=== PATIENT | female | born 1990 | race Two or more races ===

== ENCOUNTER 2018-05-18 16:42 | Inpatient (IN) | payer BC, OTHER ==
[~2018-05-18] VITALS: Ht 160 cm; Wt 148.6 kg
[2018-05-18 18:34] LABS: Basophils # (auto) 0.1 uL; Basophils % (auto) 0.5 % (0.0-2.0); Mean Corpuscular Hemoglobin 26.1 pg (28.0-32.0)
[2018-05-18 18:40] LABS: Eosinophils # (auto) 0.6 uL; Eosinophils % (auto) 3.8 % (0.0-7.0); Hematocrit 35.4 % (36.0-46.0); Hemoglobin 11.5 g/dL (12.2-16.2); Lymphocytes # (auto) 3.4 uL; Lymphocytes % (auto) 22.6 % (10.0-50.0); Mean Corpuscular Hgb Conc. 32.6 g/dL (32.0-36.0); Monocytes # (auto) 0.7 uL; Monocytes % (auto) 4.9 % (0.0-12.0); Neutrophils # (auto) 10.1 uL; Neutrophils % (auto) 68.2 % (37.0-80.0); Platelet Count (auto) 472 10^3/uL (140-450); Red Blood Cells 4.42 10^6/uL (4.0-5.20); Red Cell Distribution Width 15.6 % (11.8-14.3); White Blood Cell 14.9 10^3/uL (4.4-10.8)
[2018-05-18 18:50] LABS: Albumin 3.3 g/dL (3.4-5.0); BUN/Creatinine Ratio 23.2; Calcium 8.2 mg/dL (8.5-10.1); Potassium 3.7 mmol/L (3.5-5.1)
[2018-05-18 18:51] LABS: Urine Bacteria FEW /hpf (None Seen); Urine Blood Negative /uL (Negative); Urine Mucus FEW (None Seen); Urine Specific Gravity 1.033 (1.001-1.035); Urine WBC 1 /hpf (0 - 5)
[2018-05-18 18:53] LABS: Bilirubin, Total 0.7 mg/dL (0.2-1.0)
[2018-05-18] MEDS ORDERED: PIPERACILLIN-TAZOB 3.375GM 100 ML IV ONE (20:30)
[2018-05-18] MEDS ORDERED: SODIUM CHLORIDE 0.9% 500 ML IVB ONE (20:34)
[2018-05-18] MEDS ORDERED: TEMAZEPAM 15 MG CAP PO PRN (20:45)
[2018-05-18] MEDS ORDERED: PANTOPRAZOLE 40 MG/10 ML VIAL IV ONE (20:45)
[2018-05-18] MEDS ORDERED: ONDANSETRON HCL 4 MG/2 ML VIAL IV PRN (20:45)
[2018-05-18 21:45] VITALS: BP 120/75
[2018-05-18 22:30] VITALS: BP 120/75
[2018-05-18] MEDS: HYDROcodone-ACET 5/325MG TAB PO PRN (23:54)
[2018-05-19] MEDS ORDERED: CITA-73 PO (02:43)
[2018-05-19] MEDS ORDERED: ALPR0.254 PO (02:43)
[2018-05-19 05:00] VITALS: BP 119/65
[2018-05-19 06:48] LABS: Basophils # (auto) 0.1 uL; Eosinophils # (auto) 0.6 uL; Hemoglobin 10.9 g/dL (12.2-16.2); Lymphocytes % (auto) 24.2 % (10.0-50.0)
[2018-05-19 06:49] LABS: Basophils % (auto) 0.5 % (0.0-2.0); Eosinophils % (auto) 4.6 % (0.0-7.0); Hematocrit 33.6 % (36.0-46.0); Lymphocytes # (auto) 2.9 uL; Mean Corpuscular Hgb Conc. 32.4 g/dL (32.0-36.0); Mean Corpuscular Volume 80.5 fL (80.0-100.0); Monocytes # (auto) 0.8 uL; Monocytes % (auto) 6.3 % (0.0-12.0); Neutrophils # (auto) 7.8 uL; Neutrophils % (auto) 64.4 % (37.0-80.0); Platelet Count (auto) 408 10^3/uL (140-450); Red Blood Cells 4.18 10^6/uL (4.0-5.20); Red Cell Distribution Width 15.6 % (11.8-14.3); White Blood Cell 12.1 10^3/uL (4.4-10.8)
[2018-05-19 07:10] LABS: Albumin 2.7 g/dL (3.4-5.0); BUN/Creatinine Ratio 20.3; Calcium 7.9 mg/dL (8.5-10.1)
[2018-05-19 07:13] LABS: Bilirubin, Total 0.7 mg/dL (0.2-1.0); Total Protein 6.8 g/dL (6.4-8.2)
[2018-05-19] MEDS ORDERED: INFLUENZA QUAD 2018-2019 0.5 ML SYRG IM ONE (07:15)
[2018-05-19 09:08] VITALS: BP 127/84
[2018-05-19] MEDS: cefTRIAXone 1GM/10ml IVPUSH 10 ML IV SCH (10:47)
[2018-05-19] MEDS: PANTOPRAZOLE 40 MG/10 ML VIAL IV SCH (10:47)
[2018-05-19] MEDS ORDERED: SODIUM CHLORIDE 0.9% 1,000 ML IV ONE (12:00)
[2018-05-19 12:43] LABS: Partial Thromboplastin Time 33.8 sec (23.78-33.04); Prothrombin Time 10.7 sec (9.27-12.13)
[2018-05-19] MEDS: metroNIDAZOLE 500MG/100ML 100 ML IV SCH ×2 (13:03→20:26)
[2018-05-19 13:22] VITALS: BP 123/71
[2018-05-19] MEDS: ACETAMINOPHEN 325 MG TAB PO PRN (15:20)
[2018-05-19 17:17] VITALS: BP 132/78
[2018-05-19 22:00] VITALS: BP 130/76
[2018-05-19] MEDS: HYDROcodone-ACET 5/325MG TAB PO PRN (23:05)
[2018-05-20] MEDS: ACETAMINOPHEN 325 MG TAB PO PRN (03:00)
[2018-05-20] MEDS: metroNIDAZOLE 500MG/100ML 100 ML IV SCH (04:01)
[2018-05-20 05:00] VITALS: BP 122/70
[2018-05-20] MEDS: HYDROcodone-ACET 5/325MG TAB PO PRN (06:59)
[2018-05-20 08:18] VITALS: BP 139/73
[2018-05-20] MEDS: cefTRIAXone 1GM/10ml IVPUSH 10 ML IV SCH (09:00)
[2018-05-20] MEDS: PANTOPRAZOLE 40 MG/10 ML VIAL IV SCH (10:00)
== END 2018-05-20 10:30 | disposition home or self-care (01) | DRG 445 ==
LOC: ER 16:42 → CENTRAL 16:43
PROVIDERS: ADMIT Nurse Practitioner; ATTEND Family Medicine
DX: K80.20 Calculus of gallbladder without cholecystitis without obstruction (principal); Z68.43 Body mass index [BMI] 50.0-59.9, adult; K76.0 Fatty (change of) liver, not elsewhere classified; E66.01 Morbid (severe) obesity due to excess calories; D72.829 Elevated white blood cell count, unspecified; R16.0 Hepatomegaly, not elsewhere classified; Z90.89 Acquired absence of other organs
CPT/HCPCS: 36415; 74176; 76705; 76830; 76856; 78226; 80053; 81001; 83690; 84702; 85025; 85610; 85730; 90674; 96361; 96365; 96375; C9113; J0696; J2543; J3490

== ENCOUNTER 2019-11-30 02:09 | Inpatient (IN) | payer BC ==
[~2019-11-30] VITALS: Ht 160 cm; Wt 147.6 kg
[~2019-11-30 02:09] MED LIST: ALPR0.254 PO; CITA-73 PO
[2019-11-30 03:06] LABS: Basophils # (auto) 0.1 10 ^3/uL (0-0.2); Basophils % (auto) 0.6 % (0.0-2.0); Eosinophils # (auto) 0.7 10 ^3/uL (0-0.8); Hemoglobin 11.6 g/dL (12.2-16.2); Monocytes # (auto) 1.2 10 ^3/uL (0-1.3); Nucleated Red Blood Cells % 0.1 %
[2019-11-30 03:08] LABS: Eosinophils % (auto) 3.8 % (0.0-7.0); Hematocrit 35.4 % (36.0-46.0); Lymphocytes # (auto) 3.1 10 ^3/uL (0.4-5.4); Lymphocytes % (auto) 18.1 % (10.0-50.0); Mean Corpuscular Hgb Conc. 32.8 g/dL (32.0-36.0); Mean Corpuscular Volume 76.3 fL (80.0-100.0); Monocytes % (auto) 6.7 % (0.0-12.0); Neutrophils # (auto) 12.1 10 ^3/uL (1.6-8.6); Neutrophils % (auto) 70.8 % (37.0-80.0); Platelet Count (auto) 554 10^3/uL (140-450); Red Blood Cells 4.64 10^6/uL (4.0-5.20); Red Cell Distribution Width 15.6 % (11.8-14.3); White Blood Cell 17.1 10^3/uL (4.4-10.8)
[2019-11-30 03:20] LABS: Urine Bacteria NONE SEEN /hpf (None Seen); Urine Blood 1+ /uL (Negative); Urine Specific Gravity 1.018 (1.001-1.035); Urine WBC <1 /hpf (0 - 5)
[2019-11-30 03:24] LABS: Calcium 8.9 mg/dL (8.5-10.1); Potassium 3.9 mmol/L (3.5-5.1)
[2019-11-30 03:28] LABS: Albumin 3.1 g/dL (3.4-5.0); BUN/Creatinine Ratio 24.2
[2019-11-30 03:30] LABS: Bilirubin, Total 0.5 mg/dL (0.2-1.0)
[2019-11-30] MEDS ORDERED: ONDANSETRON HCL 4 MG/2 ML VIAL IV ONE (05:45)
[2019-11-30] MEDS ORDERED: HYDROmorphone HCL 2 MG/ML VL IV ONE (05:45)
[2019-11-30] MEDS ORDERED: PROMETHAZINE HCL 25 MG/ML 1ML IV ONE (08:00)
[2019-11-30] MEDS ORDERED: METOCLOPRAMIDE HCL 5MG/ml INJ 2ml VIAL IV ONE (08:15)
[2019-11-30] MEDS ORDERED: cefTRIAXone 1GM/50ML D5W 50 ML IV ONE (08:15)
[2019-11-30] MEDS ORDERED: PROMETHAZINE HCL 25 MG/ML 1ML IV PRN (08:45)
[2019-11-30] MEDS ORDERED: MORPHINE SULF INJ 2 MG/ML SYRINGE 1ML IV PRN (08:45)
[2019-11-30] MEDS: cefTRIAXone 1GM/50ML D5W 50 ML IV SCH (09:00)
[2019-11-30] MEDS: FAMOTIDINE (10MG/ML) 2ML VL IV SCH ×2 (09:16→21:28)
[2019-11-30] MEDS: SODIUM CHLORIDE 0.9% 1,000 ML IV SCH ×2 (09:16→18:08)
[2019-11-30] MEDS: ENOXAPARIN SOD 40 MG/0.4 ML SYRINGE SC SCH (10:00)
[2019-11-30 11:17] LABS: INR 1.13 (0.9-1.15); Partial Thromboplastin Time 30.4 sec (23.64-32.05)
[2019-11-30] MEDS ORDERED: ceFAZolin 1GM/50ML 50 ML IV ONE (11:17)
[2019-11-30] MEDS ORDERED: POVIDONE IODINE 10 % TOPICAL OINT 30GM TOP ONE (12:34)
[2019-11-30] MEDS ORDERED: fentaNYL CITRATE 100 MCG/2 ML VL ONE (12:35)
[2019-11-30] MEDS ORDERED: GLYCOPYRROLATE 0.2 MG/ML 1ML VIAL IV ONE (12:35)
[2019-11-30] MEDS ORDERED: NEOSTIGMINE 1 MG/ML INJ (10mg/10ML VIAL) IV ONE (12:35)
[2019-11-30] MEDS ORDERED: SUCCINYLCHOLINE CHLORIDE 20 MG/ML 10ML VIAL IV ONE (12:35)
[2019-11-30] MEDS ORDERED: MEPERIDINE HCL (50 MG/ML) 1 ML VIAL ONE (12:36)
[2019-11-30] MEDS ORDERED: MIDAZOLAM HCL 1MG/1ML-2 ML VIAL ONE (12:36)
[2019-11-30] MEDS ORDERED: DexAMETHasone SOD PHOS 10MG/1ML VIAL INJ ONE (13:05)
[2019-11-30] MEDS ORDERED: PROPOFOL 10 MG/ML 20 ML IV ONE (13:05)
[2019-11-30] MEDS ORDERED: MORPHINE SULF INJ 2 MG/ML SYRINGE 1ML IV ONE (14:45)
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
[2019-11-30] MEDS: metroNIDAZOLE 500MG/100ML 100 ML IV SCH ×2 (15:27→21:28)
[2019-11-30 17:24] VITALS: BP 130/83
--- NOTE | 2019-11-30 20:00 | NUR ---
RECEIVED PATIENT FROM DAY SHIFT RN. PATIENT RESTING IN BED WITH EYES CLOSED. NO S/S OF DISTRESS NOTED. C/O PAIN @ 8/10, WILL COME BACK FOR PAIN MEDICATION LATER. DRESSING ON ABD D/I, NO S/S OF BLEED AND INFECTION NOTED. ABD BINDER IN PLACE. IS AT BEDSIDE, REINFORCED PATIENT ON USING OF IS. PATIENT VERBALIZED UNDERSTANDING. BED IN LOWEST POSITION WITH SIDE RAILS UP X 2. CALL BLAKE WITHIN REACH. CONTINUE TO MONITOR FOR CHANGES Q1H AND PRN.
[2019-11-30] MEDS: MORPHINE SULF INJ 2 MG/ML SYRINGE 1ML IV PRN (20:43)
--- NOTE | 2019-11-30 20:43 | NUR ---
MEDICATED PATIENT FOR PAIN @ 03/17 ORDERED. CONTINUE TO MONITOR.
--- NOTE | 2019-11-30 21:10 | NUR ---
REASSESSED PAIN 11/15. PATIENT MORE COMFORTABLE AND SITTING AT THE SIDE OF BED AND TALKING ON THE PHONE. CONTINUE TO MONITOR.
[2019-11-30 21:43] VITALS: BP 159/86
[2019-12-01] MEDS: SODIUM CHLORIDE 0.9% 1,000 ML IV SCH ×2 (02:32→14:45)
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
[2019-12-01] MEDS: MORPHINE SULF INJ 2 MG/ML SYRINGE 1ML IV PRN ×3 (03:08→20:21)
--- NOTE | 2019-12-01 03:08 | NUR ---
MEDICATED PATIENT FOR PAIN @ 03/17 ORDERED. CONTINUE TO MONITOR.
--- NOTE | 2019-12-01 03:35 | NUR ---
REASSESSED PAIN 10/15. CONTINUE TO MONITOR.
[2019-12-01 05:00] VITALS: BP 140/75
[2019-12-01] MEDS: metroNIDAZOLE 500MG/100ML 100 ML IV SCH ×3 (05:48→21:47)
--- NOTE | 2019-12-01 05:58 | NUR ---
PATIENT BACK FROM BATHROOM WITH STEADY GAIT, AND STATED THAT SHE SEEMED LIKE SHE STARTED HER PERIOD AT THIS TIME, THE LAST PERIOD PATIENT HAD WAS 2 MONTHS AGO PER PATIENT. INSTRUCTED PATIENT TO MONITOR FOR THE PERIOD AND S/S OF ANEMIA SINCE PATIENT JUST HAD OPERATION. PATIENT VERBALIZED UNDERSTANDING. CONTINUE TO MONITOR.
[2019-12-01 06:43] LABS: Basophils # (auto) 0 10 ^3/uL (0-0.2); Basophils % (auto) 0.2 % (0.0-2.0); Eosinophils # (auto) 0 10 ^3/uL (0-0.8); Neutrophils # (auto) 13.2 10 ^3/uL (1.6-8.6); Neutrophils % (auto) 83.1 % (37.0-80.0); White Blood Cell 15.9 10^3/uL (4.4-10.8)
[2019-12-01 06:46] LABS: Hematocrit 34.8 % (36.0-46.0); Hemoglobin 11.2 g/dL (12.2-16.2); Lymphocytes # (auto) 1.6 10 ^3/uL (0.4-5.4); Mean Corpuscular Hemoglobin 24.8 pg (28.0-32.0); Mean Corpuscular Hgb Conc. 32.2 g/dL (32.0-36.0); Mean Corpuscular Volume 76.9 fL (80.0-100.0); Monocytes # (auto) 1.1 10 ^3/uL (0-1.3); Monocytes % (auto) 6.7 % (0.0-12.0); Platelet Count (auto) 529 10^3/uL (140-450); Red Blood Cells 4.53 10^6/uL (4.0-5.20); Red Cell Distribution Width 15.9 % (11.8-14.3)
[2019-12-01 07:10] LABS: Potassium 3.5 mmol/L (3.5-5.1)
[2019-12-01 07:21] LABS: Albumin 3.2 g/dL (3.4-5.0); Bilirubin, Total 0.6 mg/dL (0.2-1.0); Calcium 8.7 mg/dL (8.5-10.1); Total Protein 7.9 g/dL (6.4-8.2)
[2019-12-01 09:00] VITALS: BP 140/80
[2019-12-01] MEDS: ENOXAPARIN SOD 40 MG/0.4 ML SYRINGE SC SCH (10:33)
[2019-12-01] MEDS: cefTRIAXone 1GM/50ML D5W 50 ML IV SCH (10:35)
[2019-12-01] MEDS: FAMOTIDINE (10MG/ML) 2ML VL IV SCH ×2 (10:47→21:46)
[2019-12-01 13:00] VITALS: BP 149/89
[2019-12-01 17:00] VITALS: BP 148/85
--- NOTE | 2019-12-01 20:00 | NUR ---
RECEIVED PATIENT FROM DAY SHIFT RN. PATIENT RESTING IN BED. NO S/S OF DISTRESS NOTED. C/O PAIN @ 8/10, WILL COME BACK FOR PAIN MEDICATION LATER. DRESSING ON ABD D/I, NO S/S OF BLEED AND INFECTION NOTED. ABD BINDER IN PLACE. IS AT BEDSIDE, BED IN LOWEST POSITION WITH SIDE RAILS UP X 2. CALL BLAKE WITHIN REACH. CONTINUE TO MONITOR FOR CHANGES Q1H AND PRN.
--- NOTE | 2019-12-01 20:25 | NUR ---
MEDICATED PATIENT FOR PAIN @ 03/17 ORDERED. CONTINUE TO MONITOR.
--- NOTE | 2019-12-01 20:49 | NUR ---
REASSESSED PAIN 11/15. CONTINUE TO MONITOR.
[2019-12-01 22:00] VITALS: BP 148/75
--- NOTE | 2019-12-02 01:39 | NUR ---
PATIENT SLEEPING. NO S/S OF DISTRESS NOTED. CONTINUE CARE.
[2019-12-02 05:00] VITALS: BP 149/88
[2019-12-02] MEDS: SODIUM CHLORIDE 0.9% 1,000 ML IV SCH (05:21)
[2019-12-02] MEDS: MORPHINE SULF INJ 2 MG/ML SYRINGE 1ML IV PRN (05:21)
--- NOTE | 2019-12-02 05:22 | NUR ---
MEDICATED PATIENT FOR PAIN @ 03/17 ORDERED. CONTINUE TO MONITOR.
[2019-12-02] MEDS: metroNIDAZOLE 500MG/100ML 100 ML IV SCH (05:48)
--- NOTE | 2019-12-02 05:49 | NUR ---
REASSESSED PAIN 12/15. CONTINUE TO MONITOR.
[2019-12-02 09:00] VITALS: BP 137/98
[2019-12-02] MEDS: FAMOTIDINE (10MG/ML) 2ML VL IV SCH (09:41)
[2019-12-02] MEDS: cefTRIAXone 1GM/50ML D5W 50 ML IV SCH (09:41)
[2019-12-02] MEDS: ENOXAPARIN SOD 40 MG/0.4 ML SYRINGE SC SCH (10:00)
--- NOTE | 2019-12-02 13:05 | NUR ---
DISCHARGE INSTRUCTIONS, PRESCRIPTIONS AND FOLLOW UP APPOINTMENTS GIVEN TO PATIENT. PATIENT WAS EDUCATED ON ACTIVITY, MEDICATIONS, AND DIET AND VERBALIZED UNDERSTANDING. PATIENT ALSO EDUCATED TO RETURN TO ED IF EXPERIENCING ANY CP OR SOB THAT DOESN'T RESOLVE W/ REST. PATIENT VERBALIZED UNDERSTANDING. IV REMOVED BY VIOLETTA CLEMENTS. VS 98.2,90HR,18RR,137/98,97%.
== END 2019-12-02 13:05 | disposition home or self-care (01) | DRG 854 ==
LOC: ER 02:11 → OVERFLOW 02:12 → CENTRAL 15:12
PROVIDERS: ADMIT Internal Medicine; ATTEND Internal Medicine
PROC: 3E013GC Introduction of Other Therapeutic Substance into Subcutaneous Tissue, Percutaneous Approach (ICD-10-PCS; 2019-11-30)
PROC: 0FT44ZZ Resection of Gallbladder, Percutaneous Endoscopic Approach (ICD-10-PCS; principal; 2019-11-30 12:51)
DX: A41.9 Sepsis, unspecified organism (principal); Z68.43 Body mass index [BMI] 50.0-59.9, adult; K80.00 Calculus of gallbladder with acute cholecystitis without obstruction; E66.01 Morbid (severe) obesity due to excess calories; F12.90 Cannabis use, unspecified, uncomplicated; F41.9 Anxiety disorder, unspecified; F32.9 Major depressive disorder, single episode, unspecified; Z82.49 Family history of ischemic heart disease and other diseases of the circulatory system; Z83.3 Family history of diabetes mellitus
CPT/HCPCS: 36415; 71045; 74176; 76705; 78226; 80053; 81001; 81025; 82150; 82728; 83690; 85025; 85610; 85730; 86850; 86900; 86901; 87070; 87804; 87880; 96365; 96366; 96375; G0378; J0330; J0690; J0696; J1100; J2250; J2405; J2704; J3490

== ENCOUNTER → 2019-12-30 | Emergency (ER) | payer BC ==
[~2019-12-30] VITALS: Ht 160 cm; Wt 142.0 kg
[~2019-12-30] MED LIST changes: +ONDANSETRON HCL 4 MG/2 ML VIAL IV ONE; +PANTOPRAZOLE 40 MG/10 ML VIAL INJ IV ONE; +cefTRIAXone 1GM/50ML D5W 50 ML IV ONE
[2019-12-30 01:43] LABS: Basophils # (auto) 0.1 10 ^3/uL (0-0.2); Eosinophils # (auto) 0.5 10 ^3/uL (0-0.8); Hemoglobin 12.3 g/dL (12.2-16.2); Neutrophils # (auto) 10.6 10 ^3/uL (1.6-8.6)
[2019-12-30 01:44] LABS: Basophils % (auto) 0.8 % (0.0-2.0); Eosinophils % (auto) 3.1 % (0.0-7.0); Lymphocytes # (auto) 3.1 10 ^3/uL (0.4-5.4); Lymphocytes % (auto) 20.3 % (10.0-50.0); Mean Corpuscular Hemoglobin 24.3 pg (28.0-32.0); Mean Corpuscular Hgb Conc. 31.7 g/dL (32.0-36.0); Mean Corpuscular Volume 76.8 fL (80.0-100.0); Monocytes % (auto) 6.6 % (0.0-12.0); Neutrophils % (auto) 69.2 % (37.0-80.0); Nucleated Red Blood Cells % 0.1 %; Platelet Count (auto) 517 10^3/uL (140-450); Red Blood Cells 5.07 10^6/uL (4.0-5.20); Red Cell Distribution Width 16.2 % (11.8-14.3); White Blood Cell 15.3 10^3/uL (4.4-10.8)
[2019-12-30 01:55] LABS: Albumin 3.4 g/dL (3.4-5.0); BUN/Creatinine Ratio 17.6; Calcium 8.8 mg/dL (8.5-10.1)
[2019-12-30 01:58] LABS: Bilirubin, Total 0.5 mg/dL (0.2-1.0); Total Protein 8.2 g/dL (6.4-8.2)
[2019-12-30 02:12] LABS: Urine Bacteria NONE SEEN /hpf (None Seen); Urine Blood 2+ /uL (Negative); Urine Mucus FEW (None Seen); Urine Specific Gravity 1.031 (1.001-1.035); Urine WBC 2 /hpf (0 - 5)
[2019-12-30 09:15] VITALS: BP 125/63
== END | disposition home or self-care (01) ==
LOC: ER 00:09
DX: N39.0 Urinary tract infection, site not specified (principal); K52.9 Noninfective gastroenteritis and colitis, unspecified; Z79.899 Other long term (current) drug therapy
CPT/HCPCS: 36415; 80053; 81001; 81025; 83690; 85025; 96365; 96375; 99284; C9113; J0696; J2405; 96361; 96374

== ENCOUNTER 2020-01-02 19:40 | Emergency (ER) | payer BC ==
[~2020-01-02] VITALS: Ht 160 cm; Wt 137.4 kg
[~2020-01-02 19:40] MED LIST changes: -ONDANSETRON HCL 4 MG/2 ML VIAL IV ONE; -PANTOPRAZOLE 40 MG/10 ML VIAL INJ IV ONE; -cefTRIAXone 1GM/50ML D5W 50 ML IV ONE
[2020-01-02 21:12] LABS: Basophils # (auto) 0.1 10 ^3/uL (0-0.2); Eosinophils # (auto) 0.3 10 ^3/uL (0-0.8); Lymphocytes # (auto) 3.5 10 ^3/uL (0.4-5.4); Monocytes # (auto) 1.1 10 ^3/uL (0-1.3)
[2020-01-02 21:14] LABS: Basophils % (auto) 0.7 % (0.0-2.0); Eosinophils % (auto) 1.7 % (0.0-7.0); Lymphocytes % (auto) 19.2 % (10.0-50.0); Mean Corpuscular Hemoglobin 24.6 pg (28.0-32.0); Mean Corpuscular Hgb Conc. 31.7 g/dL (32.0-36.0); Mean Corpuscular Volume 77.5 fL (80.0-100.0); Monocytes % (auto) 5.8 % (0.0-12.0); Neutrophils # (auto) 13.2 10 ^3/uL (1.6-8.6); Neutrophils % (auto) 72.6 % (37.0-80.0); Platelet Count (auto) 509 10^3/uL (140-450); Red Blood Cells 5.29 10^6/uL (4.0-5.20); Red Cell Distribution Width 16.1 % (11.8-14.3); White Blood Cell 18.2 10^3/uL (4.4-10.8)
[2020-01-02 21:17] LABS: Urine Bacteria NONE SEEN /hpf (None Seen); Urine Blood TRACE /uL (Negative); Urine Mucus FEW (None Seen); Urine Specific Gravity 1.021 (1.001-1.035); Urine WBC 3 /hpf (0 - 5)
[2020-01-02 21:25] LABS: INR 1.17 (0.9-1.15)
[2020-01-02 21:29] LABS: Albumin 3.8 g/dL (3.4-5.0); Anion Gap 9 (5-15); Blood Urea Nitrogen 10 mg/dL (7-18); Calcium 9.1 mg/dL (8.5-10.1); Carbon Dioxide 25 mmol/L (21-32); Chloride 102 mmol/L (98-107); Glucose 97 mg/dL (74-106); Potassium 3.3 mmol/L (3.5-5.1); Sodium 136 mmol/L (136-145)
[2020-01-02 21:30] LABS: Alcohol, Urine < 3.0 mg/dL (0-10); Amphetamine Screen, Urine NEGATIVE (NEGATIVE); Barbiturate Scree,Urine NEGATIVE (NEGATIVE); Benzodiazephine Screen, Urine POSITIVE (NEGATIVE); Cannabinoid Screen, Urine NEGATIVE (NEGATIVE); Cocaine Screen, Urine NEGATIVE (NEGATIVE); Opiate Scree,Urine NEGATIVE (NEGATIVE); Phencyclidine Screen, Urine NEGATIVE (NEGATIVE)
[2020-01-02 21:35] LABS: Alanine Aminotransferase 78 U/L (13-56); Alkaline Phosphatase 113 U/L (45-117); Aspartate Aminotransferase 36 U/L (15-37); BUN/Creatinine Ratio 12.3; Bilirubin, Total 0.8 mg/dL (0.2-1.0); GFR African American 108 mL/min; GFR Non-African American 89 mL/min; Total Protein 8.5 g/dL (6.4-8.2)
[2020-01-02] MEDS ORDERED: ACETAMINOPHEN 325 MG TAB PO ONE ×2 (23:15)
[2020-01-02] MEDS ORDERED: cefTRIAXone SOD 1,000 MG VL IM ONE (23:45)
[2020-01-02] MEDS ORDERED: POTASSIUM CHL 20 Meq TABLET PO ONE (23:45)
[2020-01-03 00:40] VITALS: BP 144/90
== END 2020-01-03 00:50 | disposition home or self-care (01) ==
LOC: ER 19:41
DX: N39.0 Urinary tract infection, site not specified (principal); K29.70 Gastritis, unspecified, without bleeding; K42.9 Umbilical hernia without obstruction or gangrene; E87.6 Hypokalemia; Z90.49 Acquired absence of other specified parts of digestive tract
CPT/HCPCS: 36415; 74176; 80053; 80307; 81001; 83605; 83880; 84484; 85025; 85610; 85730; 96372; 99284; J0696

== ENCOUNTER 2020-01-05 23:21 | Emergency (ER) | payer BC ==
[~2020-01-05] VITALS: Ht 160 cm; Wt 137.4 kg
[2020-01-05 23:37] VITALS: BP 162/87
== END 2020-01-05 23:51 | disposition left against medical advice (07) ==
LOC: ER 23:21
DX: K92.1 Melena (principal); Z53.21 Procedure and treatment not carried out due to patient leaving prior to being seen by health care provider

== ENCOUNTER 2020-01-06 20:25 | Emergency (ER) | payer BC ==
[~2020-01-06] VITALS: Ht 160 cm; Wt 137.4 kg
[2020-01-06 21:27] LABS: Eosinophils # (auto) 0.3 10 ^3/uL (0-0.8); Hematocrit 37.6 % (36.0-46.0); Mean Corpuscular Volume 76.3 fL (80.0-100.0); Neutrophils # (auto) 10.6 10 ^3/uL (1.6-8.6); Neutrophils % (auto) 67.4 % (37.0-80.0); Red Blood Cells 4.93 10^6/uL (4.0-5.20); White Blood Cell 15.8 10^3/uL (4.4-10.8)
[2020-01-06 21:28] LABS: Basophils # (auto) 0.2 10 ^3/uL (0-0.2); Eosinophils % (auto) 1.8 % (0.0-7.0); Hemoglobin 12.6 g/dL (12.2-16.2); Lymphocytes # (auto) 3.6 10 ^3/uL (0.4-5.4); Lymphocytes % (auto) 22.5 % (10.0-50.0); Mean Corpuscular Hemoglobin 25.5 pg (28.0-32.0); Mean Corpuscular Hgb Conc. 33.4 g/dL (32.0-36.0); Monocytes # (auto) 1.2 10 ^3/uL (0-1.3); Monocytes % (auto) 7.3 % (0.0-12.0); Platelet Count (auto) 452 10^3/uL (140-450); Red Cell Distribution Width 16.5 % (11.8-14.3)
[2020-01-06 21:43] LABS: INR 1.17 (0.9-1.15); Partial Thromboplastin Time 32.8 sec (23.64-32.05)
[2020-01-06 21:51] LABS: Alanine Aminotransferase 66 U/L (13-56); Albumin 3.6 g/dL (3.4-5.0); Anion Gap 7 (5-15); Aspartate Aminotransferase 34 U/L (15-37); BUN/Creatinine Ratio 6.8; Blood Urea Nitrogen 5 mg/dL (7-18); Calcium 8.7 mg/dL (8.5-10.1); Carbon Dioxide 24 mmol/L (21-32); Chloride 105 mmol/L (98-107); GFR African American 121 mL/min; GFR Non-African American 100 mL/min; Glucose 99 mg/dL (74-106); Potassium 3.5 mmol/L (3.5-5.1); Sodium 136 mmol/L (136-145)
[2020-01-06 21:56] LABS: Alkaline Phosphatase 97 U/L (45-117); Bilirubin, Total 0.7 mg/dL (0.2-1.0)
[2020-01-06 22:20] LABS: Urine Bacteria FEW /hpf (None Seen); Urine Blood 2+ /uL (Negative); Urine Specific Gravity 1.003 (1.001-1.035); Urine WBC 1 /hpf (0 - 5)
[2020-01-06 22:33] LABS: Alcohol, Urine < 3.0 mg/dL (0-10); Amphetamine Screen, Urine NEGATIVE (NEGATIVE); Barbiturate Scree,Urine NEGATIVE (NEGATIVE); Benzodiazephine Screen, Urine NEGATIVE (NEGATIVE); Cannabinoid Screen, Urine NEGATIVE (NEGATIVE); Cocaine Screen, Urine NEGATIVE (NEGATIVE); Opiate Scree,Urine NEGATIVE (NEGATIVE); Phencyclidine Screen, Urine NEGATIVE (NEGATIVE)
[2020-01-07 00:05] VITALS: BP 140/82
== END 2020-01-06 23:39 | disposition home or self-care (01) ==
LOC: ER 20:26
DX: J01.90 Acute sinusitis, unspecified (principal); I10 Essential (primary) hypertension; K21.9 Gastro-esophageal reflux disease without esophagitis; Z90.49 Acquired absence of other specified parts of digestive tract
CPT/HCPCS: 36415; 71045; 80053; 80307; 81001; 81025; 83880; 84484; 85025; 85610; 85730; 93005

== ENCOUNTER 2020-01-07 05:41 | Emergency (ER) | payer BC ==
[~2020-01-07] VITALS: Ht 160 cm; Wt 137.4 kg
[2020-01-07] MEDS ORDERED: SODIUM CHLORIDE 0.9% 1,000 ML IV ONE ×2 (06:23)
[2020-01-07 07:07] LABS: Basophils # (auto) 0.1 10 ^3/uL (0-0.2); Monocytes # (auto) 0.9 10 ^3/uL (0-1.3); Monocytes % (auto) 7.5 % (0.0-12.0); Red Blood Cells 4.98 10^6/uL (4.0-5.20)
[2020-01-07 07:09] LABS: Basophils % (auto) 0.8 % (0.0-2.0); Eosinophils # (auto) 0.3 10 ^3/uL (0-0.8); Eosinophils % (auto) 2.4 % (0.0-7.0); Hematocrit 38.3 % (36.0-46.0); Hemoglobin 12.1 g/dL (12.2-16.2); Lymphocytes # (auto) 2.5 10 ^3/uL (0.4-5.4); Lymphocytes % (auto) 20.9 % (10.0-50.0); Mean Corpuscular Hemoglobin 24.2 pg (28.0-32.0); Mean Corpuscular Hgb Conc. 31.5 g/dL (32.0-36.0); Mean Corpuscular Volume 76.9 fL (80.0-100.0); Neutrophils # (auto) 8.2 10 ^3/uL (1.6-8.6); Neutrophils % (auto) 68.4 % (37.0-80.0); Nucleated Red Blood Cells % 0.1 %; Platelet Count (auto) 415 10^3/uL (140-450); Red Cell Distribution Width 16.3 % (11.8-14.3); White Blood Cell 11.9 10^3/uL (4.4-10.8)
[2020-01-07 07:24] LABS: INR 1.15 (0.9-1.15); Partial Thromboplastin Time 33.3 sec (23.64-32.05)
[2020-01-07 07:25] LABS: Albumin 3.5 g/dL (3.4-5.0); Potassium 3.7 mmol/L (3.5-5.1)
[2020-01-07 07:29] LABS: BUN/Creatinine Ratio 7.6; Bilirubin, Total 0.8 mg/dL (0.2-1.0); Total Protein 7.7 g/dL (6.4-8.2)
[2020-01-07] MEDS ORDERED: cefTRIAXone 1GM/50ML D5W 50 ML IV ONE (08:45)
[2020-01-07 08:56] VITALS: BP 138/75
== END 2020-01-07 09:49 | disposition home or self-care (01) ==
LOC: EDBD 05:41 → ER 05:41
DX: R10.9 Unspecified abdominal pain (principal); E86.0 Dehydration; D72.828 Other elevated white blood cell count; R94.5 Abnormal results of liver function studies; F12.10 Cannabis abuse, uncomplicated; F41.9 Anxiety disorder, unspecified; F32.9 Major depressive disorder, single episode, unspecified; Z79.899 Other long term (current) drug therapy; Z90.49 Acquired absence of other specified parts of digestive tract
CPT/HCPCS: 36415; 71045; 74176; 80053; 83690; 85025; 85610; 85730; 96365; 99285; J0696; J7030

== ENCOUNTER → 2020-01-21 | Outpatient (CLI) | payer BC ==
[~2020-01-21] MED LIST changes: +CLON0.1T PO; +FAM20T PO; +FLUO-125 PO; +LISI-275 PO; +SUCR1TAB38 PO
[2020-01-21 10:08] LABS: Basophils # (auto) 0.1 10 ^3/uL (0-0.2); Basophils % (auto) 1.1 % (0.0-2.0); Lymphocytes # (auto) 2.2 10 ^3/uL (0.4-5.4)
[2020-01-21 10:10] LABS: Eosinophils # (auto) 0.4 10 ^3/uL (0-0.8); Eosinophils % (auto) 4.9 % (0.0-7.0); Hematocrit 38.1 % (36.0-46.0); Hemoglobin 12.3 g/dL (12.2-16.2); Lymphocytes % (auto) 27.6 % (10.0-50.0); Mean Corpuscular Hgb Conc. 32.2 g/dL (32.0-36.0); Mean Corpuscular Volume 77.7 fL (80.0-100.0); Monocytes # (auto) 0.6 10 ^3/uL (0-1.3); Monocytes % (auto) 7.8 % (0.0-12.0); Neutrophils # (auto) 4.8 10 ^3/uL (1.6-8.6); Neutrophils % (auto) 58.6 % (37.0-80.0); Platelet Count (auto) 359 10^3/uL (140-450); White Blood Cell 8.2 10^3/uL (4.4-10.8)
[2020-01-21 10:13] LABS: Urine Bacteria FEW /hpf (None Seen); Urine Blood Negative /uL (Negative); Urine Mucus FEW (None Seen); Urine Specific Gravity 1.026 (1.001-1.035); Urine WBC 17 /hpf (0 - 5)
[2020-01-21 10:52] LABS: Potassium 4.1 mmol/L (3.5-5.1)
[2020-01-21 10:58] LABS: Free T4 (Free Thyroxine) 0.95 ng/dL (0.89-1.76)
[2020-01-21 11:08] LABS: Albumin 3.4 g/dL (3.4-5.0); Bilirubin, Total 0.7 mg/dL (0.2-1.0); Calcium 8.7 mg/dL (8.5-10.1); Total Protein 7.6 g/dL (6.4-8.2)
[2020-01-21 12:00] LABS: Hepatitis B Surface Antigen Negative (Negative)
[2020-01-21 12:04] LABS: Hepatitis C Antibody Reactive (Negative)
== END | disposition home or self-care (01) ==
LOC: LAB 09:41
PROVIDERS: ATTEND Internal Medicine
DX: I10 Essential (primary) hypertension (principal); R10.13 Epigastric pain; R11.2 Nausea with vomiting, unspecified
CPT/HCPCS: 36415; 80053; 80061; 81001; 82043; 82306; 82607; 83036; 83690; 84439; 84443; 85025; 85652; 86038; 86677; 86803; 87086; 87340

== ENCOUNTER → 2020-02-01 | Day surgery (SDC) | payer BC ==
[2020-01-30 12:26] LABS: Basophils # (auto) 0.1 10 ^3/uL (0-0.2); Eosinophils # (auto) 0.5 10 ^3/uL (0-0.8); Hemoglobin 12.4 g/dL (12.2-16.2); Lymphocytes # (auto) 2.7 10 ^3/uL (0.4-5.4); Monocytes # (auto) 1.1 10 ^3/uL (0-1.3); Neutrophils # (auto) 6.7 10 ^3/uL (1.6-8.6)
[2020-01-30 12:29] LABS: Basophils % (auto) 0.9 % (0.0-2.0); Eosinophils % (auto) 4.8 % (0.0-7.0); Hematocrit 38.7 % (36.0-46.0); Lymphocytes % (auto) 24.4 % (10.0-50.0); Mean Corpuscular Hemoglobin 24.9 pg (28.0-32.0); Mean Corpuscular Hgb Conc. 32.1 g/dL (32.0-36.0); Mean Corpuscular Volume 77.4 fL (80.0-100.0); Monocytes % (auto) 9.6 % (0.0-12.0); Neutrophils % (auto) 60.3 % (37.0-80.0); Platelet Count (auto) 375 10^3/uL (140-450); Red Blood Cells 5.01 10^6/uL (4.0-5.20); Red Cell Distribution Width 16.7 % (11.8-14.3)
[2020-01-30 12:44] LABS: INR 1.12 (0.9-1.15); Partial Thromboplastin Time 32.4 sec (23.64-32.05)
[~2020-02-01] VITALS: Ht 160 cm; Wt 132.9 kg
[~2020-02-01] MED LIST changes: +LIDOCAINE VISCOUS 2% 15ML UD ONE; +SODIUM CHLORIDE LOCK 10 ML ONE; +diphenhdrAMINE HCL 50 MG/1 ML VL ONE
[2020-02-01] MEDS: fentaNYL CITRATE 100 MCG/2 ML VL ONE ×2 (13:07→13:09)
[2020-02-01] MEDS: MIDAZOLAM HCL 5 MG/ML-1ML VIAL ONE ×3 (13:07→13:10)
[2020-02-01 13:53] VITALS: BP 125/80
== END | disposition home or self-care (01) ==
LOC: GI 10:37
PROVIDERS: ATTEND Internal Medicine Gastroenterology
DX: R11.2 Nausea with vomiting, unspecified (principal); K29.50 Unspecified chronic gastritis without bleeding; K21.9 Gastro-esophageal reflux disease without esophagitis; Z11.59 Encounter for screening for other viral diseases; Z88.8 Allergy status to other drugs, medicaments and biological substances; Z79.899 Other long term (current) drug therapy; Z98.890 Other specified postprocedural states
CPT/HCPCS: 36415; 43239; 84702; 85025; 85610; 85730; J2250; J3010; J7030; U0003

== ENCOUNTER 2020-02-18 15:18 | Emergency (ER) | payer BC ==
[~2020-02-18] VITALS: Ht 160 cm; Wt 131.5 kg
[~2020-02-18 15:18] MED LIST changes: -FAM20T PO; +FAMO20TA10 PO; -LIDOCAINE VISCOUS 2% 15ML UD ONE; -SODIUM CHLORIDE LOCK 10 ML ONE; -diphenhdrAMINE HCL 50 MG/1 ML VL ONE
[2020-02-18 17:35] LABS: Basophils # (auto) 0.1 10 ^3/uL (0-0.2); Eosinophils # (auto) 0.5 10 ^3/uL (0-0.8); Eosinophils % (auto) 3.7 % (0.0-7.0); Hemoglobin 12.4 g/dL (12.2-16.2); Monocytes # (auto) 0.9 10 ^3/uL (0-1.3); Neutrophils # (auto) 9.1 10 ^3/uL (1.6-8.6); Nucleated Red Blood Cells % 0.1 %; Red Cell Distribution Width 17.2 % (11.8-14.3)
[2020-02-18 17:36] LABS: Hematocrit 39.2 % (36.0-46.0); Lymphocytes # (auto) 2.8 10 ^3/uL (0.4-5.4); Lymphocytes % (auto) 21.1 % (10.0-50.0); Mean Corpuscular Hemoglobin 25.5 pg (28.0-32.0); Mean Corpuscular Hgb Conc. 31.6 g/dL (32.0-36.0); Mean Corpuscular Volume 80.7 fL (80.0-100.0); Monocytes % (auto) 6.4 % (0.0-12.0); Neutrophils % (auto) 67.8 % (37.0-80.0); Platelet Count (auto) 407 10^3/uL (140-450); Red Blood Cells 4.86 10^6/uL (4.0-5.20); White Blood Cell 13.4 10^3/uL (4.4-10.8)
[2020-02-18 17:47] LABS: Albumin 3.1 g/dL (3.4-5.0); Anion Gap 7 (5-15); Blood Urea Nitrogen 12 mg/dL (7-18); Calcium 8.8 mg/dL (8.5-10.1); Carbon Dioxide 20 mmol/L (21-32); Chloride 107 mmol/L (98-107); GFR African American 100 mL/min; GFR Non-African American 83 mL/min; Glucose 80 mg/dL (74-106); Potassium 4.6 mmol/L (3.5-5.1); Sodium 134 mmol/L (136-145)
[2020-02-18 17:50] LABS: Alanine Aminotransferase 78 U/L (13-56); Alkaline Phosphatase 81 U/L (45-117); Aspartate Aminotransferase 57 U/L (15-37); Bilirubin, Total 0.9 mg/dL (0.2-1.0); Total Protein 7.8 g/dL (6.4-8.2)
[2020-02-18 20:45] VITALS: BP 121/78
== END 2020-02-18 20:50 | disposition home or self-care (01) ==
LOC: ER 15:18
DX: F41.9 Anxiety disorder, unspecified (principal); B34.9 Viral infection, unspecified; E66.9 Obesity, unspecified; R06.02 Shortness of breath; Z20.828 Contact with and (suspected) exposure to other viral communicable diseases
CPT/HCPCS: 36415; 71046; 80053; 85025; 85379; 87635

== ENCOUNTER → 2020-03-04 | Outpatient (CLI) | payer BC ==
[~2020-03-04] MED LIST changes: +SUCR1TAB22 PO; -SUCR1TAB38 PO
[2020-03-04 12:08] LABS: Basophils # (auto) 0.1 10 ^3/uL (0-0.2); Eosinophils # (auto) 0.4 10 ^3/uL (0-0.8); Hematocrit 37.8 % (36.0-46.0); Lymphocytes # (auto) 2.6 10 ^3/uL (0.4-5.4); Lymphocytes % (auto) 26.8 % (10.0-50.0); Monocytes # (auto) 0.7 10 ^3/uL (0-1.3); Platelet Count (auto) 400 10^3/uL (140-450); Red Cell Distribution Width 16.5 % (11.8-14.3)
[2020-03-04 12:09] LABS: Basophils % (auto) 0.7 % (0.0-2.0); Eosinophils % (auto) 4.1 % (0.0-7.0); Hemoglobin 12.1 g/dL (12.2-16.2); Mean Corpuscular Hemoglobin 25.3 pg (28.0-32.0); Mean Corpuscular Volume 79.1 fL (80.0-100.0); Neutrophils % (auto) 61.4 % (37.0-80.0); Red Blood Cells 4.78 10^6/uL (4.0-5.20); White Blood Cell 9.8 10^3/uL (4.4-10.8)
[2020-03-04 12:26] LABS: Albumin 3.1 g/dL (3.4-5.0); Calcium 8.9 mg/dL (8.5-10.1); Potassium 3.9 mmol/L (3.5-5.1)
[2020-03-04 12:29] LABS: BUN/Creatinine Ratio 13.2; Total Protein 7.3 g/dL (6.4-8.2)
== END | disposition home or self-care (01) ==
LOC: LAB 11:36
PROVIDERS: ATTEND Internal Medicine
DX: I10 Essential (primary) hypertension (principal)
CPT/HCPCS: 36415; 80053; 84439; 84443; 85025

== ENCOUNTER → 2020-05-23 | Outpatient (CLI) | payer BC ==
[2020-05-23 14:17] LABS: Albumin 3.4 g/dL (3.4-5.0); Bilirubin, Direct 0.2 mg/dL (0-0.2); Bilirubin, Total 0.8 mg/dL (0.2-1.0); Total Protein 7.2 g/dL (6.4-8.2)
== END | disposition home or self-care (01) ==
LOC: LAB 12:05
PROVIDERS: ATTEND Internal Medicine Gastroenterology
DX: R94.5 Abnormal results of liver function studies (principal); B18.2 Chronic viral hepatitis C
CPT/HCPCS: 36415; 80076

== ENCOUNTER 2024-05-29 10:59 | Emergency (ER) | payer BC, OTHER ==
[~2024-05-29] VITALS: Ht 160 cm; Wt 143.0 kg
[~2024-05-29 10:59] MED LIST changes: -SUCR1TAB22 PO; +SUCR1TAB31 PO
[2024-05-29] MEDS ORDERED: CYCL-838 PO (11:39)
[2024-05-29 13:53] VITALS: BP 151/94; TEMP 97.8
[2024-05-29 13:54] VITALS: PULSE 72; RESP 16; O2SAT 99
== END 2024-05-29 13:58 | disposition home or self-care (01) ==
LOC: ER 10:59
DX: S33.5XXA Sprain of ligaments of lumbar spine, initial encounter (principal); M54.89 Other dorsalgia; F12.90 Cannabis use, unspecified, uncomplicated; Z79.899 Other long term (current) drug therapy; Z90.49 Acquired absence of other specified parts of digestive tract; Z90.89 Acquired absence of other organs; Z98.890 Other specified postprocedural states; X58.XXXA Exposure to other specified factors, initial encounter; Y93.89 Activity, other specified; Y92.89 Other specified places as the place of occurrence of the external cause; Y99.8 Other external cause status

== ENCOUNTER → 2024-06-18 | Outpatient (CLI) | payer BC ==
[~2024-06-18] MED LIST changes: +CYCL-838 PO
[2024-06-18 10:58] LABS: Erythrocyte Sedimentation Rate 39 mm/hr (0-20)
[2024-06-19 08:06] LABS: Complement C3 181 mg/dL (82-167); Rheumatoid Arthritis Factor <10.0 IU/mL (<14.0)
[2024-06-19 12:07] LABS: Anti-Nuclear Antibody Direct Negative (Negative); Anti-dsDNA Antibody <1 IU/mL (0-9); Antiscleroderma-70 Antibody <0.2 AI (0.0-0.9); RNP Antibody <0.2 AI (0.0-0.9); Sjogren's Anti-SS-A Antibody <0.2 AI (0.0-0.9); Sjogren's Anti-SS-B Antibody <0.2 AI (0.0-0.9); Smith Antibody <0.2 AI (0.0-0.9)
[2024-06-19 13:07] LABS: Thyroid Peroxidase (TPO) Ab <9 IU/mL (0-34)
== END | disposition home or self-care (01) ==
LOC: LAB 09:52
PROVIDERS: ATTEND Family Medicine
DX: K21.9 Gastro-esophageal reflux disease without esophagitis (principal); D72.9 Disorder of white blood cells, unspecified; E78.1 Pure hyperglyceridemia; R73.03 Prediabetes
CPT/HCPCS: 36415; 85652; 86141; 86160; 86225; 86235; 86376; 86431

== ENCOUNTER 2025-03-10 19:03 | Emergency (ER) | payer BC, OTHER ==
[~2025-03-10] VITALS: Ht 165.1 cm; Wt 127.0 kg
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
[2025-03-10] MEDS ORDERED: ACET500T58 PO (21:41)
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
[2025-03-11] MEDS: ACETAMINOPHEN 325 MG TAB PO ONE (00:08)
[2025-03-11 00:12] VITALS: BP 162/89; PULSE 78; RESP 18; TEMP 97.7; O2SAT 99
--- NOTE | 2025-03-11 06:39 | ECG ---
[facility] Test Date: 2025-03-10 Test Time: 19:24:09 Pat Name: VAZQUEZ CASTELLON Department: ED Room: Gender: F Direct Chill Caster: EDNA : 1990 Requested By: SAMM SAN Order Number: [id number] Reading MD: Bertin Resendez Measurements Intervals Shaniko Rate: 92 P: 35 FL: 146 QRS: 5 QRSD: 109 T: 14 QT: 360 QTc: 446 Interpretive Statements Sinus rhythm Low voltage, precordial leads RSR' in V1 or V2, right VCD or RVH Borderline T abnormalities, anterior leads Baseline wander in lead(s) II,III,aVF Electronically Signed On 03-11-2025 22:08:52 PDT by Bertin Resendez Please click the below link to view image of tracing.
== END 2025-03-11 00:38 | disposition home or self-care (01) ==
LOC: ER 19:03 → EDBD 19:03 → ER 03-11 00:38
DX: S63.502A Unspecified sprain of left wrist, initial encounter (principal); S20.219A Contusion of unspecified front wall of thorax, initial encounter; F41.9 Anxiety disorder, unspecified; F32.A Depression, unspecified; Z90.89 Acquired absence of other organs; Z90.49 Acquired absence of other specified parts of digestive tract; Z79.899 Other long term (current) drug therapy; V89.2XXA Person injured in unspecified motor-vehicle accident, traffic, initial encounter; Y93.89 Activity, other specified; Y92.410 Unspecified street and highway as the place of occurrence of the external cause; Y99.8 Other external cause status
CPT/HCPCS: 29125; 71046; 73110; 93005

== ENCOUNTER → 2025-05-15 | Outpatient (CLI) | payer BC ==
[~2025-05-15] MED LIST changes: +ACET500T58 PO
[2025-05-15 10:48] LABS: Nucleated Red Blood Cells % 0.0 %
[2025-05-15 10:51] LABS: Hematocrit 36.8 % (36.0-46.0); Hemoglobin 12.1 g/dL (12.2-16.2); Mean Corpuscular Hemoglobin 27.2 pg (28.0-32.0); Mean Corpuscular Volume 82.7 fL (80.0-100.0)
[2025-05-15 11:07] LABS: Alanine Aminotransferase 32 U/L (7-40); Albumin 4.2 g/dL (3.2-4.8); Alkaline Phosphatase 89 U/L (46-116); Anion Gap 10 (5-15); BUN/Creatinine Ratio 19.3 (10.0-20.0); Blood Urea Nitrogen 11 mg/dL (9-23); Calcium 8.9 mg/dL (8.7-10.4); Carbon Dioxide 25 mmol/L (20-31); Chloride 103 mmol/L (98-107); Glucose 96 mg/dL (74-106); Magnesium 1.9 mg/dL (1.6-2.6); Potassium 4.1 mmol/L (3.5-5.1); Sodium 138 mmol/L (136-145); Total Protein 7.4 g/dL (5.7-8.2); Triglycerides 115 mg/dL (< 150)
[2025-05-15 11:08] LABS: Bilirubin, Total 0.7 mg/dL (0.2-1.0); Cholesterol 139 mg/dL (< 200); HDL Cholesterol 41 mg/dL (40-59)
[2025-05-15 11:21] LABS: Iron 62.0 ug/dL (50-170)
[2025-05-15 11:23] LABS: Total Iron Binding Capacity 349.0 ug/dL (250-425)
[2025-05-15 11:27] LABS: Urine Protein, UAD Negative (Negative)
[2025-05-15 11:30] LABS: Uric Acid 5.5 mg/dL (3.1-7.8)
== END | disposition home or self-care (01) ==
LOC: LAB 10:13
PROVIDERS: ATTEND Family Medicine
DX: Z00.00 Encounter for general adult medical examination without abnormal findings (principal); Z68.43 Body mass index [BMI] 50.0-59.9, adult
CPT/HCPCS: 36415; 80053; 80061; 81001; 82306; 82607; 83036; 83540; 83550; 83735; 84443; 84550; 85025; 87086